=== PATIENT | male | born 1965 | race Caucasian/White ===

== ENCOUNTER 2024-03-12 05:42 | Day surgery (SDC) | payer MEDICAID ==
[~2024-03-12] VITALS: Ht 170.2 cm; Wt 53.6 kg
[~2024-03-12 05:42] MED LIST: ACET-3385 PO; FAMO20 PO; LISI-657 PO; SODIUM CHLORIDE 0.9% 1,000 ML ONE
[2024-03-12] MEDS: SODIUM CHLORIDE 0.9% 1,000 ML IV ONE (06:23)
[2024-03-12] MEDS ORDERED: PROPOFOL 1% 20 ML VIAL IVP ONE (06:30)
[2024-03-12] MEDS ORDERED: LIDOCAINE/PF 2% 5 ML SYRINGE IVP ONE (06:30)
[2024-03-12] MEDS ORDERED: OXYGEN THERAPY IH SCH (08:15)
== END 2024-03-12 10:10 | disposition home or self-care (01) ==
LOC: SURGERY 05:42
PROVIDERS: ATTEND Specialist
DX: R63.4 Abnormal weight loss (principal); K63.5 Polyp of colon; D12.0 Benign neoplasm of cecum; R11.2 Nausea with vomiting, unspecified; K29.50 Unspecified chronic gastritis without bleeding; K22.2 Esophageal obstruction; R10.12 Left upper quadrant pain; I10 Essential (primary) hypertension; F17.210 Nicotine dependence, cigarettes, uncomplicated; Z79.899 Other long term (current) drug therapy
CPT/HCPCS: 45385; 43239; 88305; 88312; 88313; J2704; J3490; J7030